=== PATIENT | female | born 1955 | race Caucasian/White ===

== ENCOUNTER 2017-06-26 07:22 | Day surgery (SDC) | payer MEDICAID ==
[2017-06-26 07:56] LABS: HEMOGLOBIN 14.8 g/dL (12.2-16.2); LYMPH # 1.7 K/mm3 (0.7-4.5); LYMPH % 26.9 % (10-50.0)
[2017-06-26 08:02] LABS: BUN 10 mg/dL (7-18)
[2017-06-26 08:04] LABS: GFR (ESTIMATED) 101 ML/MIN (59-)
--- NOTE | 2017-06-26 10:50 | RADIOLOGY REPORT PS360 ---
CARDIAC CATHETERIZATION DATE OF CATHETERIZATION:06/26/2017 9:44 AM PROCEDURES: 1. Left heart catheterization 2. Left ventriculogram 3. Selective coronary angiogram INDICATION FOR TEST: 1. Known coronary artery disease 2. Accelerated angina pectoris 3. History of ostial LAD stenting Informed consent was obtained prior to the procedure. COMPLICATIONS: None ESTIMATED BLOOD LOSS: Less than 10 ml. TECHNIQUE: One percent lidocaine used to anesthetize the right anterior aspect of the wrist. The right radial artery was accessed via the Seldinger technique. A 6 [place] sheath was placed in the right radial artery. 2.5 mg of verapamil, 800 mcg of nitroglycerin and 5000 U Heparin were given through the arterial sheath. The Sallie catheter was also used to perform left heart catheterization and left ventriculography. At the end of the procedure the patient was transferred to the post-op holding area in stable condition for arterial sheath removal. ANGIOGRAPHIC RESULTS: 1. The left main artery is normal 2. The left anterior descending artery has a stent in the ostial proximal segment which is widely patent with no in-stent restenosis and excellent proximal and distal transitioning 3. The circumflex artery is a large dominant vessel and normal 4. The right coronary artery small nondominant normal 5. The PADRON ventriculogram reveals normal 65% 6. The left ventricular end-diastolic pressure moderate to severely elevated at 30 mmHg IMPRESSION: 1. Widely patent stent in the ostial proximal LAD . 2. Normal ejection fraction 3. Moderate to severely elevated LVEDP which likely accounts for patient's symptoms PLAN: 1. Continue standard therapy for coronary artery disease 2. Patient requires diuresis in order to decrease LVEDP 3. Control of hypertension and associated risk factors
[2017-06-26 13:45] VITALS: BP 150/79
== END 2017-06-26 13:58 | disposition home or self-care (01) ==
LOC: CATHLAB 07:22
PROVIDERS: Internal Medicine
PROC: B2111ZZ Fluoroscopy of Multiple Coronary Arteries using Low Osmolar Contrast (ICD-10-PCS; 2017-06-26)
PROC: B2151ZZ Fluoroscopy of Left Heart using Low Osmolar Contrast (ICD-10-PCS; 2017-06-26)
PROC: 4A023N7 Measurement of Cardiac Sampling and Pressure, Left Heart, Percutaneous Approach (ICD-10-PCS; principal; 2017-06-26 12:15)
DX: I25.119 Atherosclerotic heart disease of native coronary artery with unspecified angina pectoris (principal)
CPT/HCPCS: C1725; C1769; J1644; Q9967